=== PATIENT | female | born 1935 | race African-American/Black ===

== ENCOUNTER 2017-02-07 17:19 | Emergency (ER) | payer MEDICARE, OTHER ==
[~2017-02-07] VITALS: Ht 167.6 cm; Wt 86.2 kg
[~2017-02-07 17:19] MED LIST: ACTOS30 MG ORAL; AMLODIPINE BES2.5 MG ORAL; AMLODIPINE BESYL5 MG ORAL; CARDIZEM CD120 MG ORAL; CARVEDILOL12.5 MG ORAL; CRESTOR20 MG ORAL; DITROPAN10 MG ORAL; FUROSEMIDE20 M1 ORAL; GLIMEPIRIDE1 MG ORAL; IBUPROFEN400 MG ORAL; JANUMET 50-1,01 EACH ORAL; LASIX20 M1 ORAL; LEVAQUIN500 MG ORAL; LOSARTAN POTASS25 MG ORAL; LOSARTAN POTASS50 MG ORAL; NKM; NORVASC5 MG ORAL; XARELTO10 MG ORAL
[2017-02-07 18:02] VITALS: BP 140/93
[2017-02-07 18:19] LABS: MEAN CORPUSCULAR HEMOGLOBIN 24.1 PG (27.0-31.0); MEAN CORPUSCULAR HGB CONC 32.5 G/DL (32.0-36.0); MEAN CORPUSCULAR VOLUME 74 FL (80-99); MEAN PLATELET VOLUME 10.6 FL (6.5-10.1); PLATELET COUNT 86 K/UL (150-450); RED BLOOD COUNT 5.65 M/UL (4.20-5.40); RED CELL DISTRIBUTION WIDTH 16.7 % (11.6-14.8); WHITE BLOOD COUNT 12.4 K/UL (4.8-10.8)
[2017-02-07 18:44] LABS: APPEARANCE,URINE CLOUDY; KETONES,URINE NEGATIVE (NEGATIVE); LEUKOCYTE ESTERASE ,URINE NEGATIVE (NEGATIVE); NITRITE,URINE NEGATIVE (NEGATIVE); PH,URINE 5 (4.5-8.0); PROTEIN,URINE 4+ (NEGATIVE); UROBILINOGEN,URINE 1 MG/DL (0.0-1.0)
--- NOTE | 2017-02-07 18:46 | Emergency Room Report ---
History of Present Illness General Chief Complaint: Dyspnea/Respdistress Source: Patient, Medical Record, EMS Present Illness HPI 81YOF BIBEMS for progressive SOB. Associated with cough. Denies fever/chills. Assoc with leg swelling, painful right leg. Non-compliant with lasix for ONE MONTH becayse "it makes me pee a lot." Denies chest pain, abd pain, urinary complaints, headache, sick contacts. Per EMR, history fo CHF, DM, HTN. EF in May 2016 was 45-50%. Allergies: Coded Allergies: PENICILLINS (Verified Allergy, Severe, 06/14/15) AMOXICILLIN (Unverified Allergy, Unknown, 06/09/16) AMPICILLIN (Verified Allergy, Unknown, 01/18/16) Patient History Past Medical History: DM, HTN, CHF Past Surgical History: none Pertinent Family History: none Social History: Denies: alcohol use, drug use, smoking Now: No Immunizations: UTD Reviewed Nursing Documentation: PMH: Agreed, PSxH: Agreed Nursing Documentation-PMH Past Medical History: No History, Except For Hx Cardiac Problems: Yes Hx Hypertension: Yes Hx Diabetes: Yes Hx Cancer: No Hx Gastrointestinal Problems: No Hx Neurological Problems: No Review of Systems All Other Systems: negative except mentioned in HPI Physical Exam Vital Signs Date Time Temp Pulse Resp B/P Pulse Ox O2 Delivery O2 Flow Rate FiO2 02/07/17 17:13 98.1 91 18 152/93 97 Room Air Sp02 EP Interpretation: reviewed, normal General Appearance: normal inspection, well appearing, no apparent distress, alert, GCS 15, non-toxic Head: normocephalic, atraumatic Eyes: bilateral eye EOMI, bilateral eye PERRL ENT: normal ENT inspection, hearing grossly normal, normal voice Neck: normal inspection, full range of motion, supple, no bony tend Respiratory: normal inspection, lungs clear, normal breath sounds, no respiratory distress, no retraction, no accessory muscle use, no wheezing, crackles, speaking full sentences Cardiovascular #1: regular rate, rhythm, no edema Gastrointestinal: normal inspection, normal bowel sounds, non tender, soft, no guarding, no hernia Genitourinary: no CVA tenderness Musculoskeletal: normal inspection, back normal, normal range of motion, Ade' s Sign negative, other - Right > L 2+ pitting edema. No cellulitis. No calf ttp Neurologic: normal inspection, alert, oriented x3, responsive, motor teacher III-XII nml as tested, motor strength/tone normal, speech normal Psychiatric: normal inspection, judgement/insight normal, mood/affect normal Skin: normal inspection, normal color, no rash Lymphatic: normal inspection Medical Decision Making Medicare Attestation I Maile Shepherd MD hereby attest that the medical record entry for date of service, 08/31/16 accurately reflects signatures/notations that I made in my capacity as MD when I treated/diagnosed the above listed Medicare beneficiary. I attest that this information is true, accurate and complete to the best of my knowledge. I understand that any falsification, omission, or concealment of material fact may subject me to administrative, civil, or criminal liability. This patient warrants hospital admission for extreme of age and has a condition that cannot be treated as outpatient. Diagnostic Impression: Primary Impression: Dyspnea Qualified Codes: R06.02 - Shortness of breath Additional Impressions: Acute on chronic congestive heart failure Qualified Codes: I50.9 - Heart failure, unspecified AROLDO (acute kidney injury) Hyperkalemia UTI (urinary tract infection) Qualified Codes: N30.01 - Acute cystitis with hematuria ER Course 81YOF with progressive SOB. VS notable for elevated BP initially, decreased after diuresed. Afebrile. Acute on chronic CHF - D/t non-compliance with lasix - Vitals stable. Mild congestion on exam. - Diuresed with IV lasix. Did not require BIPAP UTI - Leukocytosis - UA grossly infected - afebrile - Not systemically ill - IV Levo given - Blood and Urine Cx pending Uncontrolled DM - also non-compliant - Glucose >400 - Was given Insulin only and NOT IVF given concomitant acute CHF HyperK - Mild - Was given IV insulin for elevated glucose, should drive K intracellularly AROLDO - History of AROLDO previously - Likely pre-renal - Will hold on hydration at this time given acute CHF Endorsed to Dr. Werner at 8pm for tele admission/transfer to outside hospital. EKG Diagnostic Results Rate: normal, other - PVCs, PACs Rhythm: NSR ST Segments: no acute changes ASA given to the pt in ED: No Rhythm Strip Diag. Results EP Interpretation: yes Rate: 81 Chest X-Ray Diagnostic Results EP Interpretation: Yes Findings: no consolidation, no effusion, no pneumothorax, other - CArdiomegaly , venous congestion Number of Views: 1 Last Vital Signs Date Time Temp Pulse Resp B/P Pulse Ox O2 Delivery O2 Flow Rate FiO2 02/07/17 18:02 91 18 Room Air 02/07/17 18:02 98.1 140/93 100 Status: improved Disposition: ADMITTED INPATIENT Condition: Serious Referrals: [facility],REFERRING (PCP) MAILE SHEPHERD M.D. February 07, 2017 18:46
[2017-02-07 18:47] LABS: ALANINE AMINOTRANSFERASE 116 U/L (3-33); ANION GAP 20 (5-15); ASPARTATE AMINO TRANSFERASE 51 U/L (5-40); CALCIUM 9.2 mg/dL (8.6-10.2); CARBON DIOXIDE 21 mEQ/L (20-30); CHLORIDE 90 mEQ/L (98-107); CREATININE 1.4 mg/dL (0.5-0.9); HEMOLYSIS 8; POTASSIUM 5.1 mEQ/L (3.4-4.9); SODIUM 131 mEQ/L (135-145); TOTAL PROTEIN 7.2 g/dL (6.6-8.7)
[2017-02-07 18:48] LABS: TROPONIN I < 0.30 ng/mL (<=0.30)
[2017-02-07 18:53] LABS: BACTERIA,URINE MANY /HPF; ICTOTEST NEGATIVE; SQUAMOUS EPITHELIAL CELL,UR MODERATE /LPF (NONE/OCC); YEAST,URINE FEW /HPF
[2017-02-07 18:59] LABS: CKMB 2.1 ng/mL (< 3.8)
[2017-02-07 19:09] LABS: BILIRUBIN,DIRECT 0.7 mg/dL (0.1-0.3)
[2017-02-07 19:15] VITALS: BP 133/72
[2017-02-07 19:30] VITALS: BP 134/83
[2017-02-07 21:30] VITALS: BP 129/80
[2017-02-07 22:45] LABS: BAND NEUTROPHILS % (MANUAL) 0 % (0-8); BASOPHILS % (MANUAL) 0 % (0-2); EOSINOPHILS % (MANUAL) 1 % (0-3); LYMPHOCYTES % (MANUAL) 5 % (20-45); NEUTROPHILS % (MANUAL) 90 % (45-75); PLATELET ESTIMATE DECREASED; TOTAL CELLS COUNTED 100
[2017-02-07 22:46] LABS: ANISOCYTOSIS 1+; MICROCYTES 1+
[2017-02-07 22:47] LABS: PLATELET MORPHOLOGY NORMAL
[2017-02-07 23:26] VITALS: BP 133/85
--- NOTE | 2017-02-08 11:07 | Diagnostic Imaging Report ---
Indication: Dyspnea Comparison: 06/09/16 A single view chest radiograph was obtained. Findings: No definite infiltrate or pulmonary vascular congestion identified. The heart is enlarged. The aorta is mildly enlarged consistent with atherosclerotic vascular disease. The bones are osteopenic. Impression: No acute disease
--- NOTE | 2017-02-08 18:49 | Cardiology Report ---
APPROVED REPORT EKG Measurement Heart [id number] Sinus rhythm with occasional premature ventricular complexes and premature atrial complexes Possible Left atrial enlargement Left ventricular hypertrophy Nonspecific T wave abnormality Abnormal ECG
--- NOTE | 2017-02-08 20:39 | Consultation ---
DATE OF CONSULTATION: INTERNAL MEDICINE CONSULTATION CONSULTING PHYSICIAN: Ramone Cain M.D. HISTORY OF PRESENT ILLNESS: This 81-year-old female was brought into the emergency room by paramedics due to shortness of breath. She also has cough. She had pedal edema. She was found to have a high BNP. The patient also stated that she has not been taking medications for the last month because of polyuria. PAST MEDICAL HISTORY: Notable for CHF, diabetes mellitus, hypertension, and cardiomyopathy. ALLERGIES: To penicillin, amoxicillin, and ampicillin. REVIEW OF SYSTEMS: Denies any headaches, hematemesis, or melena. PHYSICAL EXAMINATION: VITAL SIGNS: Per ER physician, blood pressure is 150/90, heart rate 84, respirations 18, and she is afebrile. LABORATORY DATA: Lab testing is noncontributory except for white count 12.4, potassium 5, creatinine 1.4, bilirubin 0.7, total bilirubin 2.1, and ProBNP 17,625. IMAGING STUDIES: Duplex of lower extremities obtained in the emergency room shows acute thrombus in the left calf, posterior tibial. This scan was obtained in May of last year. IMPRESSION: 1. Leukocytosis. 2. History of previous deep venous thrombosis. 3. Congestive heart failure. 4. Shortness of breath. 5. Leukocytosis. 6. Hyperkalemia. 7. . DISCUSSION: Discussed with Dr. Kaz Grove. The patient at this point transferred to contracted hospital. I have contacted the on-call case packer and sealer, Caroline Eagle and process has been initiated for transfer to contracted facility. Ramone Cain M.D. DR: HENRIETTA JOB#: [id number] CC:
== END 2017-02-07 23:30 | disposition short-term general hospital (02) ==
LOC: EDBD 17:19 → EMR 18:05 → UNDOADMIN 19:00 → 2E 19:00 → EDBEDREQ 19:36 → EMR 23:30
DX: I50.9 Heart failure, unspecified (principal); N39.0 Urinary tract infection, site not specified; E11.65 Type 2 diabetes mellitus with hyperglycemia; Z91.14 Patient's other noncompliance with medication regimen; N17.9 Acute kidney failure, unspecified; Z88.0 Allergy status to penicillin; E87.5 Hyperkalemia; I10 Essential (primary) hypertension
CPT/HCPCS: 36415; 71010; 80053; 81003; 82248; 82550; 82553; 82962; 83880; 84484; 85007; 85025; 87086; 87181; 93005; 96374; 96375; 99285; J1815; J1940; J1956

== ENCOUNTER 2017-09-13 10:38 | Emergency (ER) | payer MEDICARE ==
[2017-09-13] VITALS (11 sets, daily range): BP systolic 118–143; BP diastolic 47–98
[~2017-09-13] VITALS: Ht 175.3 cm; Wt 72.6 kg
[2017-09-13] MEDS ORDERED: NOVOLOG MI100 UNIT/3 SQ (10:54)
[2017-09-13] MEDS ORDERED: RESTORIL15 MG ORAL (10:54)
[2017-09-13] MEDS ORDERED: POTASSIUM CHLO20 ME2 ORAL (10:54)
[2017-09-13] MEDS ORDERED: Adenosine 6mg/2ml Inj IVP ONE ×2 (11:45→12:15)
[2017-09-13 11:56] LABS: MEAN CORPUSCULAR HEMOGLOBIN 19.4 PG (27.0-31.0); MEAN CORPUSCULAR HGB CONC 28.1 G/DL (32.0-36.0); MEAN CORPUSCULAR VOLUME 69 FL (80-99); MEAN PLATELET VOLUME 8.3 FL (6.5-10.1); PLATELET COUNT 202 K/UL (150-450); RED BLOOD COUNT 5.92 M/UL (4.20-5.40); RED CELL DISTRIBUTION WIDTH 17.6 % (11.6-14.8); WHITE BLOOD COUNT 14.5 K/UL (4.8-10.8)
--- NOTE | 2017-09-13 12:00 | Diagnostic Imaging Report ---
Indication: Dyspnea Comparison: 02/07/2017 A single view chest radiograph was obtained. Findings: Heart is enlarged. There is some central congestion and suspicion of a small right pleural effusion. IMPRESSION: CHF
[2017-09-13 12:11] LABS: BAND NEUTROPHILS % (MANUAL) 0 % (0-8); BASOPHILS % (MANUAL) 0 % (0-2); EOSINOPHILS % (MANUAL) 3 % (0-3); LYMPHOCYTES % (MANUAL) 4 % (20-45); NEUTROPHILS % (MANUAL) 89 % (45-75); PLATELET ESTIMATE ADEQUATE; PLATELET MORPHOLOGY NORMAL; TOTAL CELLS COUNTED 100
[2017-09-13 12:12] LABS: ANISOCYTOSIS 1+; HYPOCHROMASIA 1+; MICROCYTES 2+; POLYCHROMASIA 1+
[2017-09-13 12:24] LABS: ALANINE AMINOTRANSFERASE 24 U/L (12-78); ALBUMIN/GLOBULIN RATIO 0.5 (1.0-2.7); ANION GAP 12 mmol/L (5-15); ASPARTATE AMINO TRANSFERASE 28 U/L (15-37); CALCIUM 8.8 MG/DL (8.5-10.1); CARBON DIOXIDE 21 MMOL/L (21-32); CHLORIDE 99 MMOL/L (98-107); CREATININE 2.2 MG/DL (0.55-1.30); POTASSIUM 5.9 MMOL/L (3.5-5.1); SODIUM 132 MMOL/L (136-145); TOTAL PROTEIN 7.1 G/DL (6.4-8.2)
[2017-09-13 12:25] LABS: BILIRUBIN,DIRECT 1.8 MG/DL (0.0-0.3)
[2017-09-13] MEDS ORDERED: Metoprolol 5mg/5ml Inj IVP ONE ×3 (12:30→15:00)
[2017-09-13 12:33] LABS: REFLEX LACTIC ACID YES OR NO YES
[2017-09-13] MEDS ORDERED: Sodium Polystyrene Sulfonate 15gm Powder ORAL ONE (13:00)
[2017-09-13 13:59] LABS: APPEARANCE,URINE SLIGHTLY CLOUDY; KETONES,URINE NEGATIVE (NEGATIVE); LEUKOCYTE ESTERASE ,URINE 3+ (NEGATIVE); NITRITE,URINE NEGATIVE (NEGATIVE); PH,URINE 5 (4.5-8.0); PROTEIN,URINE 2+ (NEGATIVE); UROBILINOGEN,URINE 8 MG/DL (0.0-1.0)
[2017-09-13 14:16] LABS: BACTERIA,URINE MODERATE /HPF; ICTOTEST NEGATIVE; SQUAMOUS EPITHELIAL CELL,UR FEW /LPF (NONE/OCC); WBC,URINE 20-30 /HPF (0 - 2)
--- NOTE | 2017-09-13 14:25 | Emergency Room Report ---
History of Present Illness General Chief Complaint: Altered Level of Consciousness Source: Patient, Medical Record Present Illness HPI 82-year-old female presents ED for evaluation. Patient brought in by EMS from hospice care. For shortness of breath starting today. O2 sats in the low 90s on room air. Placed on nasal cannula. Patient is unable to provide any additional history at this time. Showing no signs of distress. Afebrile. patient is DO NOT RESUSCITATE, selective treatment. No other aggravating relieving factors. Denies any other associated symptoms Allergies: Coded Allergies: PENICILLINS (Verified Allergy, Severe, 06/14/15) AMOXICILLIN (Unverified Allergy, Unknown, 06/09/16) AMPICILLIN (Verified Allergy, Unknown, 01/18/16) Patient History Past Medical History: DM Past Surgical History: none Pertinent Family History: none Social History: Denies: smoking, alcohol use, drug use Now: No Immunizations: UTD Reviewed Nursing Documentation: PMH: Agreed, PSxH: Agreed Nursing Documentation-PMH Past Medical History: No History, Except For Hx Cardiac Problems: Yes Hx Hypertension: Yes Hx Diabetes: Yes Hx Cancer: No Hx Gastrointestinal Problems: No Hx Neurological Problems: No Review of Systems All Other Systems: negative except mentioned in HPI Physical Exam Vital Signs Date Time Temp Pulse Resp B/P (MAP) Pulse Ox O2 Delivery O2 Flow Rate FiO2 09/13/17 10:25 97.0 154 16 113/91 97 Nasal Cannula 4.0 Sp02 EP Interpretation: reviewed, normal General Appearance: no apparent distress, alert, GCS 15, non-toxic Head: normocephalic, atraumatic Eyes: bilateral eye normal inspection, bilateral eye PERRL ENT: hearing grossly normal, normal pharynx, no angioedema, normal voice Neck: full range of motion, supple/symm/no masses Respiratory: chest non-tender, lungs clear, crackles, speaking full sentences Cardiovascular #1: no edema, tachycardia Cardiovascular #2: 2+ carotid (R), 2+ carotid (L), 2+ radial (R), 2+ radial (L) , 2+ dorsalis pedis (R), 2+ dorsalis pedis (L) Gastrointestinal: normal bowel sounds, non tender, soft, non-distended, no guarding, no rebound Rectal: deferred Genitourinary: normal inspection, no CVA tenderness Musculoskeletal: back normal, gait/station normal, normal range of motion, non- tender Neurologic: alert, oriented x3, responsive, motor strength/tone normal, sensory intact, speech normal Psychiatric: judgement/insight normal, memory normal, mood/affect normal, no suicidal/homicidal ideation Reflexes: 3+ bicep (R), 3+ bicep (L), 3+ tricep (R), 3+ tricep (L), 3+ knee (R) , 3+ knee (L) Skin: normal color, no rash, warm/dry, well hydrated Lymphatic: no adenopathy Medical Decision Making Diagnostic Impression: Primary Impression: CHF (congestive heart failure) Qualified Codes: I50.9 - Heart failure, unspecified Additional Impressions: Acute kidney failure Qualified Codes: N17.9 - Acute kidney failure, unspecified SVT (supraventricular tachycardia) Elevated troponin UTI (urinary tract infection) Qualified Codes: N39.0 - Urinary tract infection, site not specified; R31.9 - Hematuria, unspecified ER Course Hospital Course 82-year-old F presenting to ED with respiratory distress, cough Differential diagnoses include: Pneumonia, CHF exacerbation, pneumothorax, fluid overload Clinical course Patient placed on stretcher. On nurse monitoring with hypoxia on room air and tachycardia. After initial history and physical, I ordered labs, IV fluids, EKG, chest x-ray , blood cultures, UA. Labs -leukocytosis noted, hemoglobin/hematocrit stable, K 5.9, BUN/Cr elevated, trop 0.535, BNP elevated, lactate > 3 CXR - cardiomegaly, CHF, effusion EKG - SVT, no acute ishcemic changes IV fluids given. Given adenosine 6 mg then 12 mg with cardioversion Antibiotics given. because of patient's congestive heart failure patient will not be given 30 mL per KG fluid bolus Patient is DO NOT RESUSCITATE, selective treatment only becase of insurance patient will be transferred I feel this is a highly complex case requiring extensive working including EKG/ Rhythm strip, Xray/CT/US, Blood/urine lab work, repeat exams while in ED, and administration of strong opiates/narcotics for pain control, admission to hospital or close patient follow up. Diagnosis - CHF, acute kidney failure, SVT, elevated troponin, UTI transferred in serious condition Labs Test 09/13/17 11:25 09/13/17 13:10 09/13/17 13:20 White Blood Count 14.5 K/UL (4.8-10.8) Red Blood Count 5.92 M/UL (4.20-5.40) Hemoglobin 11.5 G/DL (12.0-16.0) Hematocrit 40.9 % (37.0-47.0) Mean Corpuscular Volume 69 FL (80-99) Mean Corpuscular Hemoglobin 19.4 PG (27.0-31.0) Mean Corpuscular Hemoglobin Concent 28.1 G/DL (32.0-36.0) Red Cell Distribution Width 17.6 % (11.6-14.8) Platelet Count 202 K/UL (150-450) Mean Platelet Volume 8.3 FL (6.5-10.1) Neutrophils (%) (Auto) % (45.0-75.0) Lymphocytes (%) (Auto) % (20.0-45.0) Monocytes (%) (Auto) % (1.0-10.0) Eosinophils (%) (Auto) % (0.0-3.0) Basophils (%) (Auto) % (0.0-2.0) Differential Total Cells Counted 100 Neutrophils % (Manual) 89 % (45-75) Lymphocytes % (Manual) 4 % (20-45) Monocytes % (Manual) 4 % (1-10) Eosinophils % (Manual) 3 % (0-3) Basophils % (Manual) 0 % (0-2) Band Neutrophils 0 % (0-8) Platelet Estimate Adequate Platelet Morphology Normal Polychromasia 1+ Hypochromasia 1+ Anisocytosis 1+ Microcytosis 2+ Sodium Level 132 MMOL/L (136-145) Potassium Level 5.9 MMOL/L (3.5-5.1) Chloride Level 99 MMOL/L (98-107) Carbon Dioxide Level 21 MMOL/L (21-32) Anion Gap 12 mmol/L (5-15) Blood Urea Nitrogen 74 mg/dL (7-18) Creatinine 2.2 MG/DL (0.55-1.30) Estimat Glomerular Filtration Rate mL/min (>60) Glucose Level 212 MG/DL (74-106) Lactic Acid Level 3.20 mmol/L (0.66-2.22) 3.20 mmol/L (0.66-2.22) Calcium Level 8.8 MG/DL (8.5-10.1) Total Bilirubin 2.7 MG/DL (0.2-1.0) Direct Bilirubin 1.8 MG/DL (0.0-0.3) Aspartate Amino Transf (AST/SGOT) 28 U/L (15-37) Alanine Aminotransferase (ALT/SGPT) 24 U/L (12-78) Alkaline Phosphatase 207 U/L (46-116) Total Creatine Kinase 41 U/L (26-308) Creatine Kinase MB 3.0 NG/ML (0.0-3.6) Creatine Kinase MB Relative Index 7.3 Troponin I 0.535 ng/mL (0.000-0.056) Pro-B-Type Natriuretic Peptide 48156 pg/mL (0-125) Total Protein 7.1 G/DL (6.4-8.2) Albumin 2.5 G/DL (3.4-5.0) Globulin 4.6 g/dL Albumin/Globulin Ratio 0.5 (1.0-2.7) Urine Color Yellow Urine Appearance Slightly cloudy Urine pH 5 (4.5-8.0) Urine Specific [place] 1.020 (1.005-1.035) Urine Protein 2+ (NEGATIVE) Urine Glucose (UA) Negative (NEGATIVE) Urine Ketones Negative (NEGATIVE) Urine Occult Blood 2+ (NEGATIVE) Urine Nitrite Negative (NEGATIVE) Urine Bilirubin 1+ (NEGATIVE) Urine Ictotest Negative Urine Urobilinogen 8 MG/DL (0.0-1.0) Urine Leukocyte Esterase 3+ (NEGATIVE) Urine RBC 5-10 /HPF (0 - 2) Urine WBC 20-30 /HPF (0 - 2) Urine Squamous Epithelial Cells Few /LPF (NONE/OCC) Urine Bacteria Moderate /HPF (NONE) EKG Diagnostic Results Rate: tachycardiac Rhythm: other - SVT ST Segments: no acute changes ASA given to the pt in ED: No Rhythm Strip Diag. Results EP Interpretation: yes Rhythm: NSR, no PVC's, no ectopy Chest X-Ray Diagnostic Results Chest X-Ray Diagnostic Results : Chest X-Ray Ordered: Yes # of Views/Limited/Complete: 1 View Indication: Shortness of Breath EP Interpretation: Yes Interpretation: no pneumothorax, no acute cardiopulmonary disease, other - CHF/effusion Impression: Other - chf Electronically Signed by: Electronically signed by Conrado Eaton MD Last Vital Signs Date Time Temp Pulse Resp B/P (MAP) Pulse Ox O2 Delivery O2 Flow Rate FiO2 09/13/17 13:33 94 17 133/72 100 Nasal Cannula 4.0 09/13/17 10:25 97.0 Status: improved Disposition: XFER SHT-TRM HOSP Condition: Serious Referrals: [facility],REFERRING (PCP) CONRADO EATON M.D. Sep 13, 2017 14:25
== END 2017-09-13 16:15 | disposition short-term general hospital (02) ==
LOC: EDBD 10:38 → EMR 11:20 → EDBEDREQ 12:09 → EMR 16:15
DX: I11.0 Hypertensive heart disease with heart failure (principal); I50.9 Heart failure, unspecified; N17.9 Acute kidney failure, unspecified; N39.0 Urinary tract infection, site not specified; I47.1 Supraventricular tachycardia; R79.89 Other specified abnormal findings of blood chemistry; E11.9 Type 2 diabetes mellitus without complications; Z88.0 Allergy status to penicillin; Z88.1 Allergy status to other antibiotic agents; Z66 Do not resuscitate
CPT/HCPCS: 36415; 51701; 71010; 80053; 81003; 82248; 82550; 82553; 83605; 83880; 84484; 85007; 85025; 87040; 87086; 87181; 93005; 96361; 96365; 96366; 96375; 96376; 99285; J0153; J1956